=== PATIENT | male | born 1965 | race African-American/Black ===

== ENCOUNTER 2023-08-05 11:30 | Inpatient (IN) | payer OTHER ==
[2023-08-05 13:06] LABS: HEMATOCRIT 37.5 % (35.4-49); HEMOGLOBIN 12.7 GM/dL (11.7-16.9); MCH 31.4 pg (25.7-33.7); MCHC 33.8 g/dl (32.0-35.9); MEAN CELL VOLUME 92.9 fl (80-96); MEAN PLT VOLUME 7.6 fl (7.5-11.1); PLATELET COUNT 467 10^3/uL (134-434); RBC 4.03 M/mm3 (4.00-5.60); RDW 13.3 % (11.9-15.9); WHITE BLOOD COUNT 20.3 K/mm3 (4.0-10.0)
[2023-08-05 13:13] LABS: INR 1.3 (0.83-1.09)
[2023-08-05 13:15] LABS: ACTIVATED PTT 32.7 SECONDS (25.2-36.5)
[2023-08-05 13:30] LABS: EPI CELLS 7 /uL (0-25.1); HYALINE CASTS 0 /uL (0-3.1); URINE APPEARANCE CLEAR; URINE BACTERIA 4 /uL (0-1359); URINE BILIRUBIN NEGATIVE (NEGATIVE); URINE COLOR YELLOW; URINE GLUCOSE (UA) 1+ (NEGATIVE); URINE KETONE NEGATIVE (NEGATIVE); URINE LEUK ESTERASE NEGATIVE (NEGATIVE); URINE NITRITE NEGATIVE (NEGATIVE); URINE PROTEIN 3+ (NEGATIVE); URINE RBC 41 /uL (0-23.9); URINE WBC 8 /uL (0-25.8)
[2023-08-05 13:34] LABS: POTASSIUM 3.3 mmol/L (3.5-5.1)
[2023-08-05 13:36] LABS: ALBUMIN 2.8 g/dl (3.4-5.0); ANISOCYTOSIS 0; BLOOD UREA NITROGEN 11.8 mg/dL (7-18); CALCIUM 8.6 mg/dL (8.5-10.1); MACROCYTOSIS 0; MAGNESIUM 1.9 mg/dL (1.8-2.4)
[2023-08-05 13:39] LABS: CREATININE 1.6 mg/dL (0.55-1.3)
[2023-08-05 13:41] LABS: TOT PROT 7.8 g/dl (6.4-8.2)
[2023-08-05] MEDS ORDERED: SODIUM CHLORIDE 0.9% 500 ML INFUS.BAG IV ONE (17:35)
[2023-08-05] MEDS ORDERED: ACETAMINOPHEN 1000 MG/100 ML BAG IVPB ONE (17:35)
[2023-08-05] MEDS ORDERED: ACETAMINOPHEN INJECTION 100 ML IVPB ONE (17:37)
[2023-08-05] MEDS ORDERED: POTASSIUM CHLORIDE ORAL LIQUID 20 MEQ/15 ML PO ONE (19:12)
[2023-08-05] MEDS ORDERED: PIPERACILLIN/TAZOB 3.375 GM 3.375 GM in DEXTROSE 5%-WATER - 50 ML IVPB ONE (19:17)
[2023-08-05 19:47] LABS: BASO % 0.4 % (0-2.0); EOS % 0.7 % (0-4.5); HEMATOCRIT 34.5 % (35.4-49); HEMOGLOBIN 11.7 GM/dL (11.7-16.9); LYMPH % 17.3 % (8-40); MCH 31.6 pg (25.7-33.7); MCHC 33.9 g/dl (32.0-35.9); MEAN CELL VOLUME 93.2 fl (80-96); MEAN PLT VOLUME 7.6 fl (7.5-11.1); MONO % 5.8 % (3.8-10.2); NEUT % 75.8 % (42.8-82.8); PLATELET COUNT 416 10^3/uL (134-434); RDW 13.6 % (11.9-15.9); WHITE BLOOD COUNT 18.5 K/mm3 (4.0-10.0)
[2023-08-05] MEDS ORDERED: PIPERACILLIN/TAZOB 3.375 GM 3.375 GM/50 ML BAG IVPB ONE (19:56)
[2023-08-05] MEDS: SODIUM CHLORIDE 1,000 ML IV SCH (20:05)
[2023-08-05] MEDS: PANTOPRAZOLE SODIUM 40 MG VIAL IVPUSH SCH (20:05)
[2023-08-05] MEDS: INSULIN (LEVEMIR) 100 UNITS/ML UNITS SQ SCH (23:01)
[2023-08-05] MEDS: ATORVASTATIN CA 80 MG TABLET (FP) PO SCH (23:01)
[2023-08-05] MEDS: levETIRAcetam 500 MG TABLET (FP) PO SCH (23:01)
[2023-08-05] MEDS: INSULIN SLIDING SCALE (NOVOLOG) 1 VIAL SQ SCH (23:04)
[2023-08-06] MEDS: INSULIN SLIDING SCALE (NOVOLOG) 1 VIAL SQ SCH ×4 (06:51→22:05)
[2023-08-06] MEDS: SODIUM CHLORIDE 1,000 ML IV SCH (06:53)
[2023-08-06] MEDS: levETIRAcetam 500 MG TABLET (FP) PO SCH ×2 (09:25→22:05)
[2023-08-06] MEDS: amLODIPine BESYLATE 10 MG TABLET (FP) PO SCH (09:25)
[2023-08-06] MEDS: PANTOPRAZOLE SODIUM 40 MG VIAL IVPUSH SCH (09:26)
[2023-08-06 10:30] LABS: HEMATOCRIT 31.9 % (35.4-49); HEMOGLOBIN 10.7 GM/dL (11.7-16.9); MCH 31.4 pg (25.7-33.7); MCHC 33.6 g/dl (32.0-35.9); MEAN CELL VOLUME 93.6 fl (80-96); MEAN PLT VOLUME 7.8 fl (7.5-11.1); PLATELET COUNT 438 10^3/uL (134-434); RBC 3.41 M/mm3 (4.00-5.60); RDW 13.3 % (11.9-15.9)
[2023-08-06 10:42] LABS: POTASSIUM 3.3 mmol/L (3.5-5.1)
[2023-08-06 10:51] LABS: ALBUMIN 2.4 g/dl (3.4-5.0); BLOOD UREA NITROGEN 12.3 mg/dL (7-18); CALCIUM 8.2 mg/dL (8.5-10.1)
[2023-08-06 10:52] LABS: CREATININE 1.6 mg/dL (0.55-1.3)
[2023-08-06 10:53] LABS: BILIRUBIN,TOTAL 0.8 mg/dL (0.2-1); TOT PROT 6.5 g/dl (6.4-8.2)
[2023-08-06 11:01] LABS: ANISOCYTOSIS 0; MACROCYTOSIS 0
[2023-08-06] MEDS ORDERED: CEFTRIAXONE 1 GM in DEXTROSE 5%-WATER - 50 ML IVPB SCH (11:30)
[2023-08-06] MEDS: PIPERACILLIN/TAZOB 3.375 GM 3.375 GM in DEXTROSE 5%-WATER - 50 ML IVPB SCH ×2 (12:58→17:05)
[2023-08-06] MEDS: SODIUM CHLORIDE 0.45% 1,000 ML IV SCH (12:58)
[2023-08-06] MEDS ORDERED: POTASSIUM CHLORIDE ORAL LIQUID 20 MEQ/15 ML PO ONE ×2 (13:00→18:12)
[2023-08-06 15:24] LABS: HEMATOCRIT 32.1 % (35.4-49); HEMOGLOBIN 10.3 GM/dL (11.7-16.9); MCH 30.4 pg (25.7-33.7); MCHC 32.1 g/dl (32.0-35.9); MEAN CELL VOLUME 94.9 fl (80-96); MEAN PLT VOLUME 7.8 fl (7.5-11.1); PLATELET COUNT 454 10^3/uL (134-434); RBC 3.38 M/mm3 (4.00-5.60); RDW 13.2 % (11.9-15.9); WHITE BLOOD COUNT 23.3 K/mm3 (4.0-10.0)
[2023-08-06 16:16] LABS: ANISOCYTOSIS 1+; MACROCYTOSIS 0
[2023-08-06] MEDS: ATORVASTATIN CA 80 MG TABLET (FP) PO SCH (22:05)
[2023-08-06] MEDS: INSULIN (LEVEMIR) 100 UNITS/ML UNITS SQ SCH (22:06)
[2023-08-07] MEDS: PIPERACILLIN/TAZOB 3.375 GM 3.375 GM in DEXTROSE 5%-WATER - 50 ML IVPB SCH ×3 (01:33→18:10)
[2023-08-07] MEDS: INSULIN SLIDING SCALE (NOVOLOG) 1 VIAL SQ SCH ×4 (06:23→21:41)
[2023-08-07] MEDS ORDERED: INSULIN (LEVEMIR) 100 UNITS/ML UNITS SQ ONE (07:04)
[2023-08-07 08:35] LABS: BASO % 0.3 % (0-2.0); EOS % 1.6 % (0-4.5); HEMATOCRIT 30.2 % (35.4-49); HEMOGLOBIN 10.2 GM/dL (11.7-16.9); LYMPH % 17.7 % (8-40); MCHC 33.8 g/dl (32.0-35.9); MEAN CELL VOLUME 94.5 fl (80-96); MEAN PLT VOLUME 7.9 fl (7.5-11.1); MONO % 4.9 % (3.8-10.2); NEUT % 75.5 % (42.8-82.8); PLATELET COUNT 404 10^3/uL (134-434); WHITE BLOOD COUNT 17.7 K/mm3 (4.0-10.0)
[2023-08-07 08:54] LABS: POTASSIUM 3.6 mmol/L (3.5-5.1)
[2023-08-07 09:04] LABS: ALBUMIN 2.4 g/dl (3.4-5.0); CALCIUM 8.4 mg/dL (8.5-10.1)
[2023-08-07 09:05] LABS: BLOOD UREA NITROGEN 11.8 mg/dL (7-18)
[2023-08-07] MEDS: levETIRAcetam 500 MG TABLET (FP) PO SCH ×2 (09:05→21:33)
[2023-08-07] MEDS: amLODIPine BESYLATE 10 MG TABLET (FP) PO SCH (09:05)
[2023-08-07 09:07] LABS: CREATININE 1.7 mg/dL (0.55-1.3)
[2023-08-07 09:09] LABS: BILIRUBIN,TOTAL 1.2 mg/dL (0.2-1); TOT PROT 6.5 g/dl (6.4-8.2)
[2023-08-07 10:43] LABS: N-TERMINAL BNP 128.1 pg/ml (5-125)
[2023-08-07] MEDS: SODIUM CHLORIDE 0.45% 1,000 ML IV SCH ×2 (16:37→18:10)
[2023-08-07] MEDS ORDERED: INSULIN (NOVOLOG) ASPART 100 UNITS/ML 10ML VIAL ONE (21:06)
[2023-08-07] MEDS: INSULIN (LEVEMIR) 100 UNITS/ML UNITS SQ SCH (21:33)
[2023-08-07] MEDS: ATORVASTATIN CA 80 MG TABLET (FP) PO SCH (21:33)
[2023-08-08] MEDS: PIPERACILLIN/TAZOB 3.375 GM 3.375 GM in DEXTROSE 5%-WATER - 50 ML IVPB SCH ×3 (01:30→19:54)
[2023-08-08] MEDS ORDERED: INSULIN (NOVOLOG) ASPART 100 UNITS/ML 10ML VIAL ONE ×2 (06:20→06:57)
[2023-08-08] MEDS: INSULIN SLIDING SCALE (NOVOLOG) 1 VIAL SQ SCH ×4 (06:57→22:20)
[2023-08-08] MEDS: SODIUM CHLORIDE 0.45% 1,000 ML IV SCH ×2 (09:32→17:43)
[2023-08-08] MEDS: levETIRAcetam 500 MG TABLET (FP) PO SCH (09:33)
[2023-08-08] MEDS: amLODIPine BESYLATE 10 MG TABLET (FP) PO SCH (09:33)
[2023-08-08 12:16] LABS: HEMATOCRIT 30.4 % (35.4-49); MCH 31.2 pg (25.7-33.7); MCHC 32.8 g/dl (32.0-35.9); MEAN PLT VOLUME 7.9 fl (7.5-11.1); PLATELET COUNT 465 10^3/uL (134-434); RDW 12.8 % (11.9-15.9); WHITE BLOOD COUNT 22.7 K/mm3 (4.0-10.0)
[2023-08-08 12:42] LABS: ANISOCYTOSIS 0; MACROCYTOSIS 0
[2023-08-08 12:46] LABS: POTASSIUM 4.1 mmol/L (3.5-5.1)
[2023-08-08 12:47] LABS: BLOOD UREA NITROGEN 8.5 mg/dL (7-18); CALCIUM 8.8 mg/dL (8.5-10.1)
[2023-08-08 12:51] LABS: CREATININE 1.5 mg/dL (0.55-1.3)
[2023-08-08 15:46] LABS: HEMATOCRIT 29.1 % (35.4-49); HEMOGLOBIN 9.4 GM/dL (11.7-16.9); MCHC 32.4 g/dl (32.0-35.9); MEAN CELL VOLUME 95.6 fl (80-96); MEAN PLT VOLUME 7.7 fl (7.5-11.1); PLATELET COUNT 466 10^3/uL (134-434); RBC 3.05 M/mm3 (4.00-5.60); RDW 13.1 % (11.9-15.9); WHITE BLOOD COUNT 27.3 K/mm3 (4.0-10.0)
[2023-08-08 16:14] LABS: ANISOCYTOSIS 1+; MACROCYTOSIS 1+
[2023-08-08 18:27] LABS: HEMATOCRIT 26.2 % (35.4-49); HEMOGLOBIN 8.8 GM/dL (11.7-16.9); MCH 32.1 pg (25.7-33.7); MCHC 33.6 g/dl (32.0-35.9); MEAN CELL VOLUME 95.4 fl (80-96); MEAN PLT VOLUME 8.1 fl (7.5-11.1); PLATELET COUNT 469 10^3/uL (134-434); RBC 2.74 M/mm3 (4.00-5.60); RDW 13.1 % (11.9-15.9); WHITE BLOOD COUNT 27.6 K/mm3 (4.0-10.0)
[2023-08-08] MEDS ORDERED: SODIUM CHLORIDE 0.45% 1,000 ML IV SCH (18:35)
[2023-08-08 18:45] LABS: ALBUMIN 2.4 g/dl (3.4-5.0); BLOOD UREA NITROGEN 10.9 mg/dL (7-18)
[2023-08-08 18:49] LABS: CREATININE 1.6 mg/dL (0.55-1.3)
[2023-08-08 18:50] LABS: BILIRUBIN,TOTAL 0.9 mg/dL (0.2-1); TOT PROT 6.8 g/dl (6.4-8.2)
[2023-08-08 19:43] LABS: OVALOCYTE 1+
[2023-08-08] MEDS: MUPIROCIN 2% TOPICAL OINTMENT FOR DECOLONIZATION NS SCH (21:05)
[2023-08-08] MEDS: CHLORHEXIDINE GLUCONATE 4% CLEANSER FOR DECOLONIZATION TP SCH (21:05)
[2023-08-08] MEDS: ATORVASTATIN CA 80 MG TABLET (FP) PO SCH (21:55)
[2023-08-08] MEDS ORDERED: levETIRAcetam 500 MG TABLET (FP) PO SCH (22:00)
[2023-08-08] MEDS ORDERED: MUPIROCIN 2% TOPICAL OINTMENT FOR DECOLONIZATION NS SCH ×2 (22:00)
[2023-08-08] MEDS ORDERED: CHLORHEXIDINE GLUCONATE 4% CLEANSER FOR DECOLONIZATION TP SCH ×2 (22:00)
[2023-08-08 22:09] LABS: HEMATOCRIT 24.7 % (35.4-49); MCH 30.5 pg (25.7-33.7); MCHC 32.3 g/dl (32.0-35.9); MEAN CELL VOLUME 94.4 fl (80-96); MEAN PLT VOLUME 7.8 fl (7.5-11.1); PLATELET COUNT 402 10^3/uL (134-434); RBC 2.61 M/mm3 (4.00-5.60); RDW 13.1 % (11.9-15.9); WHITE BLOOD COUNT 22.5 K/mm3 (4.0-10.0)
[2023-08-08] MEDS: levETIRAcetam 500 MG/5 ML INJECTION VIAL IVPB SCH (22:17)
[2023-08-08] MEDS: DEXTROSE 5%-0.45% SALINE 1,000 ML IV SCH (22:17)
[2023-08-08] MEDS: INSULIN (LEVEMIR) 100 UNITS/ML UNITS SQ SCH (22:19)
[2023-08-08 23:03] LABS: OVALOCYTE 1+
[2023-08-08 23:10] LABS: PLATELET ESTIMATE ADEQUATE
[2023-08-09] MEDS: PIPERACILLIN/TAZOB 3.375 GM 3.375 GM in DEXTROSE 5%-WATER - 50 ML IVPB SCH ×3 (01:59→17:35)
[2023-08-09] MEDS: INSULIN SLIDING SCALE (NOVOLOG) 1 VIAL SQ SCH ×4 (06:07→21:42)
[2023-08-09 06:36] LABS: HEMATOCRIT 22.9 % (35.4-49); HEMOGLOBIN 7.7 GM/dL (11.7-16.9); MCH 31.7 pg (25.7-33.7); MCHC 33.5 g/dl (32.0-35.9); MEAN CELL VOLUME 94.6 fl (80-96); MEAN PLT VOLUME 7.8 fl (7.5-11.1); PLATELET COUNT 404 10^3/uL (134-434); RBC 2.42 M/mm3 (4.00-5.60); RDW 13.1 % (11.9-15.9); WHITE BLOOD COUNT 20.7 K/mm3 (4.0-10.0)
[2023-08-09 06:53] LABS: POTASSIUM 3.7 mmol/L (3.5-5.1)
[2023-08-09 06:59] LABS: ALBUMIN 2.1 g/dl (3.4-5.0); CALCIUM 7.7 mg/dL (8.5-10.1)
[2023-08-09 07:00] LABS: BLOOD UREA NITROGEN 12.3 mg/dL (7-18)
[2023-08-09 07:03] LABS: CREATININE 1.6 mg/dL (0.55-1.3)
[2023-08-09 07:04] LABS: BILIRUBIN,TOTAL 0.7 mg/dL (0.2-1)
[2023-08-09 08:46] LABS: ANISOCYTOSIS 0; HELMET CELLS 0; HOWELL-JOLLY BODIES 0; MACROCYTOSIS 0; OVALOCYTE 0; ROULEAU 0; SICKELED CELLS 0; TARGET CELLS 0; TEAR DROP CELLS 0; TOXIC GRANULATION 0
[2023-08-09] MEDS: levETIRAcetam 500 MG/5 ML INJECTION VIAL IVPB SCH ×2 (09:40→21:39)
[2023-08-09] MEDS: amLODIPine BESYLATE 10 MG TABLET (FP) PO SCH (09:56)
[2023-08-09] MEDS: MUPIROCIN 2% TOPICAL OINTMENT FOR DECOLONIZATION NS SCH ×2 (10:27→21:40)
[2023-08-09 16:16] LABS: BASO % 0.5 % (0-2.0); EOS % 1.2 % (0-4.5); HEMATOCRIT 23.2 % (35.4-49); HEMOGLOBIN 7.6 GM/dL (11.7-16.9); LYMPH % 16.6 % (8-40); MCH 30.9 pg (25.7-33.7); MEAN CELL VOLUME 93.7 fl (80-96); MEAN PLT VOLUME 7.7 fl (7.5-11.1); MONO % 6.1 % (3.8-10.2); NEUT % 75.6 % (42.8-82.8); PLATELET COUNT 382 10^3/uL (134-434); RBC 2.47 M/mm3 (4.00-5.60); RDW 12.7 % (11.9-15.9); WHITE BLOOD COUNT 17.5 K/mm3 (4.0-10.0)
[2023-08-09 16:17] LABS: BASO % 0.3 % (0-2.0); EOS % 1.1 % (0-4.5); HEMOGLOBIN 7.6 GM/dL (11.7-16.9); MCH 31.1 pg (25.7-33.7); MCHC 33.2 g/dl (32.0-35.9); MEAN CELL VOLUME 93.7 fl (80-96); MEAN PLT VOLUME 7.7 fl (7.5-11.1); MONO % 6.1 % (3.8-10.2); NEUT % 73.5 % (42.8-82.8); PLATELET COUNT 374 10^3/uL (134-434); RBC 2.45 M/mm3 (4.00-5.60); WHITE BLOOD COUNT 17.6 K/mm3 (4.0-10.0)
[2023-08-09 16:25] LABS: INR 1.31 (0.83-1.09); PROTHROMBIN TIME (PATIENT) 15.2 SEC (9.7-13.0)
[2023-08-09 20:12] LABS: BASO % 0.2 % (0-2.0); EOS % 1.4 % (0-4.5); HEMATOCRIT 23.6 % (35.4-49); HEMOGLOBIN 7.8 GM/dL (11.7-16.9); MCH 31.3 pg (25.7-33.7); MCHC 33.2 g/dl (32.0-35.9); MEAN CELL VOLUME 94.2 fl (80-96); MEAN PLT VOLUME 7.6 fl (7.5-11.1); MONO % 5.7 % (3.8-10.2); NEUT % 73.7 % (42.8-82.8); PLATELET COUNT 381 10^3/uL (134-434); RDW 13.1 % (11.9-15.9); WHITE BLOOD COUNT 17.9 K/mm3 (4.0-10.0)
[2023-08-09] MEDS: CHLORHEXIDINE GLUCONATE 4% CLEANSER FOR DECOLONIZATION TP SCH (21:39)
[2023-08-09] MEDS: INSULIN (LEVEMIR) 100 UNITS/ML UNITS SQ SCH (21:40)
[2023-08-09] MEDS: DEXTROSE 5%-0.45% SALINE 1,000 ML IV SCH (21:40)
[2023-08-09] MEDS: ATORVASTATIN CA 80 MG TABLET (FP) PO SCH (21:42)
[2023-08-10] MEDS: PIPERACILLIN/TAZOB 3.375 GM 3.375 GM in DEXTROSE 5%-WATER - 50 ML IVPB SCH ×2 (02:10→10:44)
[2023-08-10] MEDS: INSULIN SLIDING SCALE (NOVOLOG) 1 VIAL SQ SCH ×4 (06:21→21:20)
[2023-08-10 07:55] LABS: BASO % 0.3 % (0-2.0); EOS % 1.4 % (0-4.5); HEMATOCRIT 22.4 % (35.4-49); HEMOGLOBIN 7.5 GM/dL (11.7-16.9); LYMPH % 13.4 % (8-40); MCH 31.2 pg (25.7-33.7); MCHC 33.4 g/dl (32.0-35.9); MEAN CELL VOLUME 93.4 fl (80-96); MEAN PLT VOLUME 7.5 fl (7.5-11.1); MONO % 6.6 % (3.8-10.2); NEUT % 78.3 % (42.8-82.8); PLATELET COUNT 389 10^3/uL (134-434); RDW 12.9 % (11.9-15.9); WHITE BLOOD COUNT 16.2 K/mm3 (4.0-10.0)
[2023-08-10 08:08] LABS: POTASSIUM 3.3 mmol/L (3.5-5.1)
[2023-08-10 08:10] LABS: CALCIUM 7.6 mg/dL (8.5-10.1)
[2023-08-10 08:12] LABS: BLOOD UREA NITROGEN 6.6 mg/dL (7-18)
[2023-08-10 08:14] LABS: CREATININE 1.4 mg/dL (0.55-1.3)
[2023-08-10 08:15] LABS: BILIRUBIN,TOTAL 0.6 mg/dL (0.2-1); TOT PROT 5.7 g/dl (6.4-8.2)
[2023-08-10] MEDS ORDERED: POTASSIUM CHLORIDE ORAL LIQUID 20 MEQ/15 ML PO ONE (08:44)
[2023-08-10] MEDS: amLODIPine BESYLATE 10 MG TABLET (FP) PO SCH (10:46)
[2023-08-10] MEDS: levETIRAcetam 500 MG/5 ML INJECTION VIAL IVPB SCH ×2 (10:46→21:09)
[2023-08-10] MEDS: MUPIROCIN 2% TOPICAL OINTMENT FOR DECOLONIZATION NS SCH ×2 (10:50→21:09)
[2023-08-10 12:20] VITALS: BMI 36.8
[2023-08-10 15:57] LABS: BASO % 0.2 % (0-2.0); EOS % 1.4 % (0-4.5); HEMATOCRIT 25.3 % (35.4-49); HEMOGLOBIN 8.5 GM/dL (11.7-16.9); LYMPH % 17.1 % (8-40); MCH 31.2 pg (25.7-33.7); MCHC 33.5 g/dl (32.0-35.9); MEAN CELL VOLUME 93.3 fl (80-96); MEAN PLT VOLUME 7.8 fl (7.5-11.1); MONO % 6.5 % (3.8-10.2); NEUT % 74.8 % (42.8-82.8); PLATELET COUNT 401 10^3/uL (134-434); RBC 2.71 M/mm3 (4.00-5.60); RDW 13.8 % (11.9-15.9); WHITE BLOOD COUNT 19.8 K/mm3 (4.0-10.0)
[2023-08-10 17:52] LABS: EPI CELLS 11 /uL (0-25.1); HYALINE CASTS 1 /uL (0-3.1); URINE APPEARANCE CLEAR; URINE BACTERIA 8 /uL (0-1359); URINE BILIRUBIN NEGATIVE (NEGATIVE); URINE COLOR YELLOW; URINE GLUCOSE (UA) 1+ (NEGATIVE); URINE KETONE NEGATIVE (NEGATIVE); URINE LEUK ESTERASE TRACE (NEGATIVE); URINE NITRITE NEGATIVE (NEGATIVE); URINE PROTEIN 1+ (NEGATIVE); URINE RBC 1136 /uL (0-23.9); URINE UROBILINOGEN 0.2 mg/dL (0.2-1.0); URINE WBC 28 /uL (0-25.8)
[2023-08-10] MEDS: CHLORHEXIDINE GLUCONATE 4% CLEANSER FOR DECOLONIZATION TP SCH (21:09)
[2023-08-10] MEDS: ATORVASTATIN CA 80 MG TABLET (FP) PO SCH (21:10)
[2023-08-10] MEDS: INSULIN (LEVEMIR) 100 UNITS/ML UNITS SQ SCH (21:44)
[2023-08-11 08:48] LABS: BASO % 0.4 % (0-2.0); EOS % 1.8 % (0-4.5); HEMOGLOBIN 8.6 GM/dL (11.7-16.9); LYMPH % 21.7 % (8-40); MCH 31.9 pg (25.7-33.7); MCHC 34.3 g/dl (32.0-35.9); MEAN CELL VOLUME 92.9 fl (80-96); MEAN PLT VOLUME 7.6 fl (7.5-11.1); MONO % 6.9 % (3.8-10.2); NEUT % 69.2 % (42.8-82.8); PLATELET COUNT 463 10^3/uL (134-434); RBC 2.69 M/mm3 (4.00-5.60); RDW 14.2 % (11.9-15.9); WHITE BLOOD COUNT 17.4 K/mm3 (4.0-10.0)
[2023-08-11 09:04] LABS: POTASSIUM 3.6 mmol/L (3.5-5.1)
[2023-08-11 09:06] LABS: CALCIUM 8.1 mg/dL (8.5-10.1)
[2023-08-11 09:07] LABS: ALBUMIN 2.2 g/dl (3.4-5.0); MAGNESIUM 1.8 mg/dL (1.8-2.4)
[2023-08-11 09:10] LABS: CREATININE 1.2 mg/dL (0.55-1.3)
[2023-08-11 09:13] LABS: BILIRUBIN,TOTAL 0.8 mg/dL (0.2-1); TOT PROT 6.3 g/dl (6.4-8.2)
[2023-08-11] MEDS: INSULIN SLIDING SCALE (NOVOLOG) 1 VIAL SQ SCH ×4 (09:46→21:54)
[2023-08-11] MEDS: levETIRAcetam 500 MG/5 ML INJECTION VIAL IVPB SCH ×2 (10:30→21:51)
[2023-08-11] MEDS: INSULIN (LEVEMIR) 100 UNITS/ML UNITS SQ SCH (21:53)
[2023-08-12] MEDS: INSULIN SLIDING SCALE (NOVOLOG) 1 VIAL SQ SCH ×4 (06:00→21:51)
[2023-08-12 09:10] LABS: BASO % 0.2 % (0-2.0); EOS % 1.5 % (0-4.5); HEMATOCRIT 25.4 % (35.4-49); HEMOGLOBIN 8.9 GM/dL (11.7-16.9); MCH 32.4 pg (25.7-33.7); MCHC 34.8 g/dl (32.0-35.9); MEAN CELL VOLUME 93.1 fl (80-96); MEAN PLT VOLUME 7.3 fl (7.5-11.1); MONO % 6.7 % (3.8-10.2); NEUT % 68.6 % (42.8-82.8); PLATELET COUNT 514 10^3/uL (134-434); RBC 2.73 M/mm3 (4.00-5.60); RDW 13.9 % (11.9-15.9); WHITE BLOOD COUNT 17.3 K/mm3 (4.0-10.0)
[2023-08-12 09:33] LABS: POTASSIUM 3.6 mmol/L (3.5-5.1)
[2023-08-12 09:36] LABS: CALCIUM 8.4 mg/dL (8.5-10.1)
[2023-08-12 09:37] LABS: ALBUMIN 2.2 g/dl (3.4-5.0); BLOOD UREA NITROGEN 7.4 mg/dL (7-18); MAGNESIUM 1.8 mg/dL (1.8-2.4)
[2023-08-12 09:40] LABS: CREATININE 1.3 mg/dL (0.55-1.3)
[2023-08-12 09:42] LABS: BILIRUBIN,TOTAL 0.9 mg/dL (0.2-1); TOT PROT 6.6 g/dl (6.4-8.2)
[2023-08-12] MEDS: levETIRAcetam 500 MG/5 ML INJECTION VIAL IVPB SCH ×2 (10:36→21:50)
[2023-08-12] MEDS: INSULIN (LEVEMIR) 100 UNITS/ML UNITS SQ SCH (21:51)
[2023-08-13] MEDS: INSULIN SLIDING SCALE (NOVOLOG) 1 VIAL SQ SCH ×4 (06:06→22:01)
[2023-08-13 09:02] LABS: BASO % 0.4 % (0-2.0); EOS % 2.4 % (0-4.5); HEMATOCRIT 26.8 % (35.4-49); HEMOGLOBIN 9.1 GM/dL (11.7-16.9); LYMPH % 20.3 % (8-40); MCH 31.9 pg (25.7-33.7); MEAN CELL VOLUME 93.7 fl (80-96); MEAN PLT VOLUME 7.4 fl (7.5-11.1); MONO % 7.5 % (3.8-10.2); NEUT % 69.4 % (42.8-82.8); PLATELET COUNT 544 10^3/uL (134-434); RBC 2.86 M/mm3 (4.00-5.60); RDW 14.1 % (11.9-15.9); WHITE BLOOD COUNT 12.7 K/mm3 (4.0-10.0)
[2023-08-13 09:23] LABS: POTASSIUM 3.7 mmol/L (3.5-5.1)
[2023-08-13 09:29] LABS: CALCIUM 8.3 mg/dL (8.5-10.1)
[2023-08-13 09:30] LABS: ALBUMIN 2.3 g/dl (3.4-5.0); BLOOD UREA NITROGEN 6.6 mg/dL (7-18); MAGNESIUM 1.8 mg/dL (1.8-2.4)
[2023-08-13 09:32] LABS: CREATININE 1.2 mg/dL (0.55-1.3)
[2023-08-13 09:34] LABS: BILIRUBIN,TOTAL 0.4 mg/dL (0.2-1); TOT PROT 6.7 g/dl (6.4-8.2)
[2023-08-13] MEDS ORDERED: HEPARIN NA (PORCINE) 5,000 UNITS/ML 1ML VIAL ONE (11:20)
[2023-08-13] MEDS: levETIRAcetam 500 MG/5 ML INJECTION VIAL IVPB SCH ×2 (12:52→21:39)
[2023-08-13] MEDS: INSULIN (LEVEMIR) 100 UNITS/ML UNITS SQ SCH (21:40)
[2023-08-13] MEDS ORDERED: levETIRAcetam 500 MG/5 ML INJECTION VIAL IVPB ONE (21:55)
[2023-08-14] MEDS: INSULIN SLIDING SCALE (NOVOLOG) 1 VIAL SQ SCH ×4 (06:33→23:51)
[2023-08-14] MEDS: levETIRAcetam 500 MG/5 ML INJECTION VIAL IVPB SCH ×2 (10:51→21:48)
[2023-08-14] MEDS ORDERED: MIDAZOLAM HCL 2 MG/2 ML SINGLE DOSE VIAL ONE (16:49)
[2023-08-14] MEDS ORDERED: PROPOFOL 20 ML ONE ×3 (16:53→17:53)
[2023-08-14] MEDS ORDERED: TAMSULOSIN HCL 0.4 MG CAP PO SCH (17:05)
[2023-08-14] MEDS ORDERED: LABETALOL HCL 20 MG/4 ML VIAL ONE (17:27)
[2023-08-14] MEDS ORDERED: ONDANSETRON 4 MG/2 ML VIAL IVPUSH PRN ×2 (18:53→21:00)
[2023-08-14] MEDS ORDERED: LACTATED RINGERS SOLUTION 1,000 ML IV SCH (19:00)
[2023-08-14 19:51] LABS: HEMATOCRIT 30.4 % (35.4-49); MCH 31.2 pg (25.7-33.7); MEAN CELL VOLUME 94.7 fl (80-96); MEAN PLT VOLUME 7.2 fl (7.5-11.1); PLATELET COUNT 723 10^3/uL (134-434); RBC 3.21 M/mm3 (4.00-5.60); RDW 14.5 % (11.9-15.9); WHITE BLOOD COUNT 24.3 K/mm3 (4.0-10.0)
[2023-08-14 20:24] LABS: POTASSIUM 3.6 mmol/L (3.5-5.1)
[2023-08-14 20:26] LABS: CALCIUM 8.8 mg/dL (8.5-10.1)
[2023-08-14 20:27] LABS: ALBUMIN 2.6 g/dl (3.4-5.0); BLOOD UREA NITROGEN 8.3 mg/dL (7-18)
[2023-08-14 20:30] LABS: CREATININE 1.4 mg/dL (0.55-1.3)
[2023-08-14 20:31] LABS: BILIRUBIN,TOTAL 0.4 mg/dL (0.2-1); TOT PROT 7.3 g/dl (6.4-8.2)
[2023-08-14] MEDS ORDERED: traMADol HCL 50 MG TABLET PO PRN (21:14)
[2023-08-14 21:16] LABS: ANISOCYTOSIS 0; MACROCYTOSIS 0
[2023-08-14] MEDS: ACETAMINOPHEN 650 MG/20.3 ML ORAL SOLUTION (CUPS) PO PRN (21:47)
[2023-08-14] MEDS: LACTATED RINGERS SOLUTION 1,000 ML IV SCH (21:50)
[2023-08-14] MEDS: INSULIN (LEVEMIR) 100 UNITS/ML UNITS SQ SCH (23:48)
[2023-08-15 00:36] LABS: HEMATOCRIT 26.8 % (35.4-49); HEMOGLOBIN 8.9 GM/dL (11.7-16.9); MCH 31.2 pg (25.7-33.7); MEAN CELL VOLUME 94.5 fl (80-96); MEAN PLT VOLUME 7.3 fl (7.5-11.1); PLATELET COUNT 621 10^3/uL (134-434); RBC 2.84 M/mm3 (4.00-5.60); WHITE BLOOD COUNT 20.7 K/mm3 (4.0-10.0)
[2023-08-15] MEDS: ACETAMINOPHEN 650 MG/20.3 ML ORAL SOLUTION (CUPS) PO PRN (03:14)
[2023-08-15 03:43] LABS: ANISOCYTOSIS 2+; MACROCYTOSIS 0; OVALOCYTE 2+; TEAR DROP CELLS 1+
[2023-08-15] MEDS: INSULIN SLIDING SCALE (NOVOLOG) 1 VIAL SQ SCH ×4 (06:08→22:34)
[2023-08-15 10:11] LABS: HEMATOCRIT 25.1 % (35.4-49); HEMOGLOBIN 8.2 GM/dL (11.7-16.9); MCH 30.7 pg (25.7-33.7); MCHC 32.5 g/dl (32.0-35.9); MEAN CELL VOLUME 94.4 fl (80-96); MEAN PLT VOLUME 7.2 fl (7.5-11.1); PLATELET COUNT 591 10^3/uL (134-434); RBC 2.66 M/mm3 (4.00-5.60); RDW 14.1 % (11.9-15.9); WHITE BLOOD COUNT 20.9 K/mm3 (4.0-10.0)
[2023-08-15] MEDS: TAMSULOSIN HCL 0.4 MG CAP PO SCH (10:31)
[2023-08-15 10:44] LABS: POTASSIUM 3.9 mmol/L (3.5-5.1)
[2023-08-15 10:47] LABS: ANISOCYTOSIS 0; MACROCYTOSIS 0
[2023-08-15 11:03] LABS: TOT PROT 6.1 g/dl (6.4-8.2)
[2023-08-15 11:04] LABS: BILIRUBIN,TOTAL 0.2 mg/dL (0.2-1)
[2023-08-15 11:06] LABS: BLOOD UREA NITROGEN 9.8 mg/dL (7-18)
[2023-08-15 11:07] LABS: CREATININE 1.3 mg/dL (0.55-1.3); PHOSPHOROUS 2.9 mg/dL (2.5-4.9)
[2023-08-15 11:21] LABS: CALCIUM 8.3 mg/dL (8.5-10.1)
[2023-08-15 11:22] LABS: ALBUMIN 2.2 g/dl (3.4-5.0)
[2023-08-15 11:23] LABS: MAGNESIUM 1.8 mg/dL (1.8-2.4)
[2023-08-15] MEDS: levETIRAcetam 500 MG/5 ML INJECTION VIAL IVPB SCH ×2 (12:06→22:33)
[2023-08-15] MEDS: PIPERACILLIN/TAZOB 3.375 GM 3.375 GM in DEXTROSE 5%-WATER - 50 ML IVPB SCH ×2 (13:33→17:54)
[2023-08-15] MEDS: LACTATED RINGERS SOLUTION 1,000 ML IV SCH (14:55)
[2023-08-15] MEDS: INSULIN (LEVEMIR) 100 UNITS/ML UNITS SQ SCH (22:34)
[2023-08-16] MEDS: PIPERACILLIN/TAZOB 3.375 GM 3.375 GM in DEXTROSE 5%-WATER - 50 ML IVPB SCH ×3 (02:44→19:10)
[2023-08-16] MEDS: INSULIN SLIDING SCALE (NOVOLOG) 1 VIAL SQ SCH ×4 (06:35→22:22)
[2023-08-16] MEDS: TAMSULOSIN HCL 0.4 MG CAP PO SCH (09:06)
[2023-08-16 10:14] LABS: BASO % 0.4 % (0-2.0); EOS % 2.4 % (0-4.5); HEMATOCRIT 22.5 % (35.4-49); HEMOGLOBIN 7.4 GM/dL (11.7-16.9); LYMPH % 22.6 % (8-40); MCH 31.1 pg (25.7-33.7); MCHC 32.9 g/dl (32.0-35.9); MEAN CELL VOLUME 94.5 fl (80-96); MEAN PLT VOLUME 7.2 fl (7.5-11.1); MONO % 6.7 % (3.8-10.2); NEUT % 67.9 % (42.8-82.8); PLATELET COUNT 553 10^3/uL (134-434); RBC 2.38 M/mm3 (4.00-5.60); RDW 14.6 % (11.9-15.9); WHITE BLOOD COUNT 15.7 K/mm3 (4.0-10.0)
[2023-08-16 10:28] LABS: POTASSIUM 3.8 mmol/L (3.5-5.1)
[2023-08-16 10:37] LABS: BLOOD UREA NITROGEN 7.3 mg/dL (7-18)
[2023-08-16 10:40] LABS: CREATININE 1.3 mg/dL (0.55-1.3)
[2023-08-16 10:41] LABS: BILIRUBIN,TOTAL 0.6 mg/dL (0.2-1); TOT PROT 5.8 g/dl (6.4-8.2)
[2023-08-16] MEDS: levETIRAcetam 500 MG/5 ML INJECTION VIAL IVPB SCH ×2 (11:53→22:16)
[2023-08-16] MEDS: INSULIN (LEVEMIR) 100 UNITS/ML UNITS SQ SCH (22:23)
[2023-08-17] MEDS: PIPERACILLIN/TAZOB 3.375 GM 3.375 GM in DEXTROSE 5%-WATER - 50 ML IVPB SCH ×3 (02:17→22:53)
[2023-08-17] MEDS: INSULIN SLIDING SCALE (NOVOLOG) 1 VIAL SQ SCH ×4 (07:52→22:56)
[2023-08-17 09:39] LABS: BASO % 0.3 % (0-2.0); EOS % 2.3 % (0-4.5); HEMATOCRIT 24.1 % (35.4-49); HEMOGLOBIN 8.3 GM/dL (11.7-16.9); LYMPH % 21.9 % (8-40); MCH 32.2 pg (25.7-33.7); MCHC 34.4 g/dl (32.0-35.9); MEAN CELL VOLUME 93.6 fl (80-96); MEAN PLT VOLUME 7.1 fl (7.5-11.1); NEUT % 69.5 % (42.8-82.8); PLATELET COUNT 565 10^3/uL (134-434); RBC 2.58 M/mm3 (4.00-5.60); RDW 15.8 % (11.9-15.9); WHITE BLOOD COUNT 15.2 K/mm3 (4.0-10.0)
[2023-08-17 09:51] LABS: POTASSIUM 3.5 mmol/L (3.5-5.1)
[2023-08-17 09:56] LABS: ALBUMIN 2.2 g/dl (3.4-5.0); BLOOD UREA NITROGEN 5.4 mg/dL (7-18); CALCIUM 8.7 mg/dL (8.5-10.1)
[2023-08-17 09:59] LABS: CREATININE 1.3 mg/dL (0.55-1.3)
[2023-08-17 10:01] LABS: BILIRUBIN,TOTAL 0.7 mg/dL (0.2-1); TOT PROT 6.2 g/dl (6.4-8.2)
[2023-08-17] MEDS: TAMSULOSIN HCL 0.4 MG CAP PO SCH (11:04)
[2023-08-17] MEDS: levETIRAcetam 500 MG/5 ML INJECTION VIAL IVPB SCH ×2 (11:35→22:52)
[2023-08-17] MEDS: INSULIN (LEVEMIR) 100 UNITS/ML UNITS SQ SCH (22:57)
[2023-08-18] MEDS: PIPERACILLIN/TAZOB 3.375 GM 3.375 GM in DEXTROSE 5%-WATER - 50 ML IVPB SCH ×4 (06:33→23:44)
[2023-08-18] MEDS: INSULIN SLIDING SCALE (NOVOLOG) 1 VIAL SQ SCH ×4 (06:34→23:42)
[2023-08-18 10:05] LABS: BASO % 0.3 % (0-2.0); EOS % 2.3 % (0-4.5); HEMOGLOBIN 10.1 GM/dL (11.7-16.9); LYMPH % 28.4 % (8-40); MCHC 33.7 g/dl (32.0-35.9); MEAN CELL VOLUME 91.9 fl (80-96); MEAN PLT VOLUME 6.9 fl (7.5-11.1); MONO % 7.2 % (3.8-10.2); NEUT % 61.8 % (42.8-82.8); PLATELET COUNT 560 10^3/uL (134-434); RBC 3.27 M/mm3 (4.00-5.60); RDW 16.5 % (11.9-15.9); WHITE BLOOD COUNT 12.4 K/mm3 (4.0-10.0)
[2023-08-18] MEDS: levETIRAcetam 500 MG/5 ML INJECTION VIAL IVPB SCH ×2 (10:24→23:30)
[2023-08-18] MEDS: TAMSULOSIN HCL 0.4 MG CAP PO SCH (10:24)
[2023-08-18 10:38] LABS: POTASSIUM 3.5 mmol/L (3.5-5.1)
[2023-08-18 10:48] LABS: CALCIUM 8.8 mg/dL (8.5-10.1); CREATININE 1.2 mg/dL (0.55-1.3)
[2023-08-18 10:49] LABS: ALBUMIN 2.2 g/dl (3.4-5.0); BLOOD UREA NITROGEN 3.6 mg/dL (7-18)
[2023-08-18 10:50] LABS: BILIRUBIN,TOTAL 0.5 mg/dL (0.2-1); TOT PROT 6.2 g/dl (6.4-8.2)
[2023-08-18] MEDS ORDERED: FUROSEMIDE 20 MG TABLET (FP) PO ONE (16:57)
[2023-08-18] MEDS: amLODIPine BESYLATE 5 MG TABLET (FP) PO SCH (17:14)
[2023-08-18] MEDS: INSULIN (LEVEMIR) 100 UNITS/ML UNITS SQ SCH (23:43)
[2023-08-19] MEDS: PIPERACILLIN/TAZOB 3.375 GM 3.375 GM in DEXTROSE 5%-WATER - 50 ML IVPB SCH (06:05)
[2023-08-19] MEDS: INSULIN SLIDING SCALE (NOVOLOG) 1 VIAL SQ SCH ×4 (06:05→21:46)
[2023-08-19] MEDS: levETIRAcetam 500 MG/5 ML INJECTION VIAL IVPB SCH ×2 (09:19→21:49)
[2023-08-19] MEDS: TAMSULOSIN HCL 0.4 MG CAP PO SCH (09:19)
[2023-08-19] MEDS: amLODIPine BESYLATE 5 MG TABLET (FP) PO SCH (09:19)
[2023-08-19 16:16] LABS: POTASSIUM 3.5 mmol/L (3.5-5.1)
[2023-08-19 16:18] LABS: ALBUMIN 2.4 g/dl (3.4-5.0)
[2023-08-19 16:19] LABS: BLOOD UREA NITROGEN 5.6 mg/dL (7-18)
[2023-08-19 16:21] LABS: CREATININE 1.3 mg/dL (0.55-1.3)
[2023-08-19 16:22] LABS: BASO % 0.2 % (0-2.0); EOS % 2.1 % (0-4.5); HEMATOCRIT 32.4 % (35.4-49); HEMOGLOBIN 10.8 GM/dL (11.7-16.9); MCH 31.1 pg (25.7-33.7); MCHC 33.4 g/dl (32.0-35.9); MEAN CELL VOLUME 93.2 fl (80-96); MEAN PLT VOLUME 7.2 fl (7.5-11.1); MONO % 6.4 % (3.8-10.2); NEUT % 70.3 % (42.8-82.8); PLATELET COUNT 594 10^3/uL (134-434); RBC 3.47 M/mm3 (4.00-5.60); RDW 16.9 % (11.9-15.9); WHITE BLOOD COUNT 13.7 K/mm3 (4.0-10.0)
[2023-08-19 16:23] LABS: BILIRUBIN,TOTAL 0.3 mg/dL (0.2-1); TOT PROT 6.7 g/dl (6.4-8.2)
[2023-08-19] MEDS: AMOX TR/POT CLAV 875MG/125MG TABLETS (FP) PO SCH (16:54)
[2023-08-19 19:40] LABS: BASO % 0.6 % (0-2.0); EOS % 1.8 % (0-4.5); HEMATOCRIT 33.9 % (35.4-49); HEMOGLOBIN 11.6 GM/dL (11.7-16.9); LYMPH % 23.7 % (8-40); MCH 31.8 pg (25.7-33.7); MCHC 34.2 g/dl (32.0-35.9); MEAN PLT VOLUME 7.2 fl (7.5-11.1); MONO % 6.5 % (3.8-10.2); NEUT % 67.4 % (42.8-82.8); PLATELET COUNT 597 10^3/uL (134-434); RBC 3.64 M/mm3 (4.00-5.60); RDW 16.6 % (11.9-15.9); WHITE BLOOD COUNT 14.9 K/mm3 (4.0-10.0)
[2023-08-19 20:03] LABS: POTASSIUM 3.5 mmol/L (3.5-5.1)
[2023-08-19 20:07] LABS: CALCIUM 8.8 mg/dL (8.5-10.1)
[2023-08-19 20:08] LABS: ALBUMIN 2.5 g/dl (3.4-5.0); BLOOD UREA NITROGEN 5.9 mg/dL (7-18)
[2023-08-19 20:11] LABS: CREATININE 1.3 mg/dL (0.55-1.3)
[2023-08-19 20:12] LABS: BILIRUBIN,TOTAL 0.4 mg/dL (0.2-1)
[2023-08-19 20:13] LABS: TOT PROT 6.8 g/dl (6.4-8.2)
[2023-08-19] MEDS ORDERED: INSULIN (NOVOLOG) ASPART 100 UNITS/ML 10ML VIAL ONE (21:04)
[2023-08-19] MEDS: INSULIN (LEVEMIR) 100 UNITS/ML UNITS SQ SCH (21:47)
[2023-08-20] MEDS: INSULIN SLIDING SCALE (NOVOLOG) 1 VIAL SQ SCH ×2 (06:13→11:46)
[2023-08-20 08:32] LABS: BASO % 0.4 % (0-2.0); EOS % 2.9 % (0-4.5); HEMOGLOBIN 10.8 GM/dL (11.7-16.9); LYMPH % 25.5 % (8-40); MCH 31.5 pg (25.7-33.7); MCHC 33.8 g/dl (32.0-35.9); MEAN CELL VOLUME 93.2 fl (80-96); MEAN PLT VOLUME 7.1 fl (7.5-11.1); MONO % 7.2 % (3.8-10.2); PLATELET COUNT 559 10^3/uL (134-434); RBC 3.44 M/mm3 (4.00-5.60); RDW 16.9 % (11.9-15.9); WHITE BLOOD COUNT 12.2 K/mm3 (4.0-10.0)
[2023-08-20 08:48] LABS: POTASSIUM 3.5 mmol/L (3.5-5.1)
[2023-08-20 08:50] LABS: CALCIUM 8.6 mg/dL (8.5-10.1)
[2023-08-20 08:51] LABS: ALBUMIN 2.4 g/dl (3.4-5.0)
[2023-08-20 08:54] LABS: CREATININE 1.1 mg/dL (0.55-1.3)
[2023-08-20 08:55] LABS: TOT PROT 6.5 g/dl (6.4-8.2)
[2023-08-20 08:56] LABS: BILIRUBIN,TOTAL 0.4 mg/dL (0.2-1)
[2023-08-20] MEDS: TAMSULOSIN HCL 0.4 MG CAP PO SCH (09:42)
[2023-08-20] MEDS: levETIRAcetam 500 MG/5 ML INJECTION VIAL IVPB SCH (09:42)
[2023-08-20] MEDS: AMOX TR/POT CLAV 875MG/125MG TABLETS (FP) PO SCH (09:42)
[2023-08-20] MEDS: amLODIPine BESYLATE 5 MG TABLET (FP) PO SCH (09:42)
[2023-08-20 14:36] VITALS: BP 146/92; PULSE 105; RESP 18; TEMP 98.8
== END 2023-08-20 16:01 | DRG 226 ==
LOC: JER 11:30 → JERBED 17:37 → J6S 20:14 → J8W 08-07 14:40 → J4S 08-08 13:09 → JICU 08-08 18:26 → J5S 08-10 23:25 → J7W 08-19 18:27
PROVIDERS: ADMIT Internal Medicine; ATTEND Internal Medicine
PROC: 0DJD8ZZ Inspection of Lower Intestinal Tract, Via Natural or Artificial Opening Endoscopic (ICD-10-PCS; 2023-08-08)
PROC: 30233N1 Transfusion of Nonautologous Red Blood Cells into Peripheral Vein, Percutaneous Approach (ICD-10-PCS; 2023-08-09)
PROC: 30233L1 Transfusion of Nonautologous Fresh Plasma into Peripheral Vein, Percutaneous Approach (ICD-10-PCS; 2023-08-09)
PROC: 30233K1 Transfusion of Nonautologous Frozen Plasma into Peripheral Vein, Percutaneous Approach (ICD-10-PCS; 2023-08-09)
PROC: 0D9Q7ZZ Drainage of Anus, Via Natural or Artificial Opening (ICD-10-PCS; principal; 2023-08-14 16:00)
DX: K61.2 Anorectal abscess (principal); I13.0 Hypertensive heart and chronic kidney disease with heart failure and stage 1 through stage 4 chronic kidney disease, or unspecified chronic kidney disease; L89.312 Pressure ulcer of right buttock, stage 2; K57.91 Diverticulosis of intestine, part unspecified, without perforation or abscess with bleeding; E11.22 Type 2 diabetes mellitus with diabetic chronic kidney disease; I50.9 Heart failure, unspecified; L89.322 Pressure ulcer of left buttock, stage 2; E11.51 Type 2 diabetes mellitus with diabetic peripheral angiopathy without gangrene; E66.01 Morbid (severe) obesity due to excess calories; R47.01 Aphasia; Y83.9 Surgical procedure, unspecified as the cause of abnormal reaction of the patient, or of later complication, without mention of misadventure at the time of the procedure; Z68.41 Body mass index [BMI] 40.0-44.9, adult; T83.091A Other mechanical complication of indwelling urethral catheter, initial encounter; D64.9 Anemia, unspecified; N18.30 Chronic kidney disease, stage 3 unspecified; K92.1 Melena; K63.5 Polyp of colon; K64.8 Other hemorrhoids; E87.6 Hypokalemia; I25.10 Atherosclerotic heart disease of native coronary artery without angina pectoris
CPT/HCPCS: 0241U-QW; 36415; 36430; 70450-TC; 71045-TC-FY; 72196-TC; 74174-TC; 74177-TC; 80048; 80053; 80061; 80307; 81003; 82140; 82272; 82962; 83036; 83605; 83690; 83735; 83880; 84100; 84439; 84443; 84484; 85025; 85610; 85730; 86850; 86900; 86901; 86922; 87040; 87070; 87086; 87186; 87205; 87635; 93005; 93010; 93306-TC; 94760; 99285-25; J1644; P9017; P9038; P9058; Q9967